=== PATIENT | female | born 1965 | race Caucasian/White ===

== ENCOUNTER 2018-11-03 01:02 | Inpatient (IN) | payer BC ==
[~2018-11-03] VITALS: Ht 162.6 cm; Wt 99.1 kg
[2018-11-03 01:10] VITALS: Ht 162.6 cm; Wt 99.1 kg
[2018-11-03 01:57] LABS: CALCIUM 9.3 mg/dL (8.5-10.1); CARBON DIOXIDE 23.4 mmol/L (21-32); CHLORIDE SERUM 104 mmol/L (98-107); CREATININE SERUM 0.9 mg/dL (0.6-1.0); GFR1 > 60 mL/min; GLUCOSE SERUM 101 mg/dL (74-106); POTASSIUM SERUM 4.2 mmol/L (3.5-5.1); SODIUM SERUM 139 mmol/L (136-145)
[2018-11-03 01:58] LABS: BASOPHIL % 0.3 % (0-2); PLATELET COUNT 313 x10^3mcL (130-400); RED CELL DISTRIBUTION WIDTH 13.7 % (11.5-14.5)
[2018-11-03 02:04] LABS: ALBUMIN 3.8 g/dL (3.4-5.0); ALKALINE PHOSPHATASE 111 U/L (46-116); ALT/SGPT 26 U/L (14-59); AST/SGOT 20 U/L (15-37); BILIRUBIN TOTAL 0.3 mg/dL (0.20-1.00); LIPASE 76 IU/L (73-393); TOTAL PROTEIN, SERUM 8.3 g/dL (6.4-8.2)
[2018-11-03 03:17] LABS: AMPHETAMINE QUAL UR NONE DETECTED (See below)
[2018-11-03] MEDS ORDERED: AMO125L8 ×2 (04:16→04:19)
[2018-11-03] MEDS ORDERED: CLONAZEPAM0.5 MG (04:17)
[2018-11-03] MEDS ORDERED: PEPCID20 MG (04:17)
[2018-11-03] MEDS ORDERED: AMLODIPINE-OLM1 EAC1 (04:17)
[2018-11-03] MEDS ORDERED: OMEPRAZOLE10 M1 (04:17)
[2018-11-03] MEDS ORDERED: ONDANSETRON4 M3 (04:18)
[2018-11-03] MEDS ORDERED: CARVEDILOL3.125 M1 (04:18)
[2018-11-03] MEDS ORDERED: CLARITIN10 MG (04:18)
[2018-11-03 04:28] LABS: UA SPECIFIC GRAVITY <=1.005 (1.005-1.035); microscopic required? YES; urine erythrocyte TRACE (NEGATIVE)
[2018-11-03 04:34] LABS: MAGNESIUM 2.2 mg/dL (1.8-2.4); PHOSPHOROUS 4.1 mg/dL (2.5-4.9)
[2018-11-03 04:35] LABS: CHOLESTEROL/HDL RATIO 5.9
[2018-11-03 04:42] LABS: T3 TOTAL 1.2 ng/mL
[2018-11-03 04:44] LABS: FREE T4 1.04 ng/dL (0.76-1.46); T4(THYROXINE) 9.4 ug/dL (4.7-13.3)
[2018-11-03 05:00] VITALS: BP 139/71
[2018-11-03 08:19] VITALS: BP 112/40
[2018-11-03 12:52] VITALS: BP 109/55
[2018-11-03 16:15] VITALS: BP 111/57
[2018-11-03 20:51] VITALS: BP 108/44
[2018-11-04 05:10] VITALS: BP 104/51
[2018-11-04 06:15] LABS: BASOPHIL % 0.5 % (0-2); PLATELET COUNT 272 x10^3mcL (130-400); RED CELL DISTRIBUTION WIDTH 13.9 % (11.5-14.5)
[2018-11-04 06:29] LABS: CALCIUM 8.5 mg/dL (8.5-10.1); CARBON DIOXIDE 29.1 mmol/L (21-32); CHLORIDE SERUM 108 mmol/L (98-107); CREATININE SERUM 0.8 mg/dL (0.6-1.0); GFR1 > 60 mL/min; GLUCOSE SERUM 97 mg/dL (74-106); MAGNESIUM 2.2 mg/dL (1.8-2.4); PHOSPHOROUS 4.1 mg/dL (2.5-4.9); POTASSIUM SERUM 4.1 mmol/L (3.5-5.1); SODIUM SERUM 141 mmol/L (136-145)
[2018-11-04 09:19] VITALS: BP 139/73
[2018-11-04 10:32] VITALS: BP 139/73
== END 2018-11-04 12:58 | disposition home or self-care (01) | DRG 391 ==
LOC: ED 01:02 → DU 03:56
PROVIDERS: Emergency Medicine; Internal Medicine; ADMIT General Practice
DX: K21.9 Gastro-esophageal reflux disease without esophagitis (principal); N17.0 Acute kidney failure with tubular necrosis; I10 Essential (primary) hypertension; E78.5 Hyperlipidemia, unspecified; F41.9 Anxiety disorder, unspecified; E78.00 Pure hypercholesterolemia, unspecified; Z88.5 Allergy status to narcotic agent; Z90.49 Acquired absence of other specified parts of digestive tract; Z79.899 Other long term (current) drug therapy
CPT/HCPCS: 83880; 84439; J2060; J3490; J7030; Q0092